=== PATIENT | male | born 1960 | race Caucasian/White ===

== ENCOUNTER 2017-09-23 21:35 | Emergency (ER) | payer OTHER ==
--- OUTSIDE RECORDS SUMMARY | 2017-09-23 21:41 | XMS REPORT | Continuity of Care Document ---
:1960 Author Organization [facility] Support Name Relationship Address Phone JAKOB HAYS spouse [address] [place] [address] Allergies and Intolerances No Allergy Data in the System Medications No Known Medications Problems No Data in the system Procedures No data in the system Results Laboratory Results Order: C REACTIVE PROTEIN Specimen Source : Body Site: Legend: (G,H)=High, (GG,HH,CH,#H)=Above High Threshold, (#,L)=Low, (##,CL,#L,LL)=Below Low Threshold, (C,CC,CA,#A,A)=Abnormal LOINC Test Result Flag Range Units Date 1987-07 1CRP SerPl-mCnc 12.3 H <=5.0 mg/L 09/08/2017 11:07 Performing Lab Footnotes:[facility] - [id number] - [address] [place] [address] REINALDO WOLFE Order: CBC DIFF Specimen Source: Body Site: Legend: (G,H)=High, (GG,HH, CH,#H)=Above High Threshold, (#,L)=Low, (##,CL,#L,LL)=Below Low Threshold, (C,CC ,CA,#A,A)=Abnormal LOINC Test Result Flag Range Units Date 6690- 1WBC # Bld Auto 12.0 H 4.8-10.8 K/uL 09/08/2017 11:07 77328-1 1RBC # Bld 4.61 4.60-6.20 M/uL 09/08/2017 11:07 718-7 1Hgb Bld-mCnc 16.0 13.5-18.0 gm/dL 09/08/2017 11:07 4544-3 1Hct VFr Bld Auto 46.7 41.0-53.0 % 09/08/2017 11:07 787-2 1MCV RBC Auto 101.0 H 80.0-100.0 fL 09/08/2017 11:07 21567-5 1MCHC RBC-mCnc 34.2 30.0-36.5 % 09/08/2017 11:07 18800-8 1MCH RBC Qn 34.7 H 27.0-34.0 pg 09/08/2017 11:07 14890-9 1RDW RBC 11.9 11.0-15.0 % 09/08/2017 11:07 777-3 1Platelet # Bld Auto 257 130-450 K/uL 09/08/2017 11:07 53884-8 1PMV Bld Auto 7.9 6.0-12.0 fL 09/08/2017 11:07 751-8 1Neutrophils # Bld Auto 75 37-80 % 09/08/2017 11:07 58352-7 1Lymphocytes NFr Bld 17 10-50 % 09/08/2017 11:07 5905-5 1Monocytes NFr Bld Auto 7 0-12 % 09/08/2017 11:07 21254-0 1Eosinophil # Bld 1 <=8 % 09/08/2017 11:07 704-7 1Basophils # Bld Auto 0 <=3 % 09/08/2017 11:07 37325-8 1Neutrophils # Bld 9.0 H 1.8-8.6 K/uL 09/08/2017 11:07 731-0 1Lymphocytes # Bld Auto 2.0 0.5-5.0 K/uL 09/08/2017 11:07 742-7 1Monocytes # Bld Auto 0.9 0.0-1.3 K/uL 09/08/2017 11:07 40763-8 1Eosinophil # Bld 0.1 0.0-0.9 K/uL 09/08/2017 11:07 704-7 1Basophils # Bld Auto 0.0 0.0-0.3 K/ul 09/08/2017 11:07 Performing Lab Footnotes:[facility] - [id number] - [address] [place] [address] REINALDO [id number] Order: RHEUMATOID FACTOR Specimen Source: Body Site: Legend: (G,H)=High , (GG,HH,CH,#H)=Above High Threshold, (#,L)=Low, (##,CL,#L,LL)=Below Low Threshold, (C,CC,CA,#A,A)=Abnormal LOINC Test Result Flag Range Units Date 65014-3 1RF IgG Ser-aCnc NEGATIVE NEGATIVE 09/08/2017 11:07 1Methodology: Latex Agglutination Performing Lab Footnotes:[facility] - [id number] - [address] [place] [address] REINALDO [id number] Order: SEDRATE ESR Specimen Source: Body Site: Legend: (G,H)=High, (GG, HH,CH,#H)=Above High Threshold, (#,L)=Low, (##,CL,#L,LL)=Below Low Threshold, (C ,CC,CA,#A,A)=Abnormal LOINC Test Result Flag Range Units Date 14079-9 1ESR Bld Qn 3.0 0.0-20.0 mm/hr 09/08/2017 11:07 Performing Lab Footnotes:[facility] - [id number] - [address] [place] [address] REINALDO WOLFE Order: URIC ACID Specimen Source: Body Site: Legend: (G,H)=High, (GG,HH ,CH,#H)=Above High Threshold, (#,L)=Low, (##,CL,#L,LL)=Below Low Threshold, (C, CC,CA,#A,A)=Abnormal LOINC Test Result Flag Range Units Date 3084- 1Urate SerPl-mCnc 6.7 2.6-7.2 mg/dL 09/08/2017 11:07 Performing Lab Footnotes:[facility] - [id number] - [address] [place] [address] REINALDO WOLFE Reference Laboratory Results Order: DEVIN - Antinuclear Antibodies, IFA [SO] Specimen Source: Body Site: LOINC Code Test Result Flag Range Units Date 70010-08 1Nuclear Ab Negative 09/08/2017 11:07:00 AM Note: Negative <1:80 Borderline 1:80 Positive >1:80 Performing Lab Footnotes:[facility] - [address] [id number] BRAYDON SANTOS Social History Code Code System Social History Description Dates Observed Observation [id number] SNOMED CT Current Smoking Unknown if ever Status smoked UNK AdministrativeGender Sex Assigned At Unknown Vital Signs No data in the system Goals Section No data in the system Health Concerns No data in the systemEncounter Diagnosis Date Code Code System Diagnosis Status R03.0 ICD10 ELEVATED BP READING W/O DX HTN Active Advance Directives No Data in the System Family History No data in the system Functional Status No data in the system Immunizations No data in the system Medical Equipment No data in the system Mental Status No data in the system Assessment and Plan Assessments No data in the systemPlan Of Treatment No data in the systemPending Tests No data in the system Hospital Discharge Instructions No data in the system Reason for Visit No data in the system
--- OUTSIDE RECORDS SUMMARY | 2017-09-23 21:41 | XMS REPORT ---
:1960 External Reference #:[id number] Author Organization [facility], Address [address] [place] [address] Phone [phone] Care Team Providers Name Role Phone Talisha Healy M.D. Primary Care Physician Unavailable Payers Type Date Identification Numbers Payment Provider Subscriber Commercial Policy Number: [id number] Lifetime Benefit Solution Bernice Yeung PayID: [id number] [address] [address] [place] [address] Commercial Expires: 2015 Policy Number: [id number] [email or web address] Bernice Yeung Group Number: [id number] [address] PayID: [place] [address] Problems Description No Information Family History Date Family Member(s) Problem(s) Comments General Non Contributory Social History Type Date Description Comments Marital Status Occupation [employer] Work Status Currently Working Hand Dominance Right-handed ETOH Use Drinks 2 Alcoholic Beverages Per Day Smoking Patient is a current smoker, smokes some days Recreational Drug Use Denies Drug Use Allergies, Adverse Reactions, Alerts Date Description Reaction Status Severity Comments 09/09/2017 NKDA active Medications Medication Date Status Form Strength Qnty SIG Indications Ordering Provider Diclofenac Active Tablets DR 75mg 1 by Unknown Sodium 000 mouth twice a day with food Clindamycin HCL Active Capsules 300mg 1 tab Unknown 000 four times a day x 10 days Cephalexin Active Capsules 500mg 1 by Unknown 000 mouth four times a day Medications Administered in Office Medication Date Status Form Strength Qnty SIG Indications Ordering Provider Injection Administered Injection Omari Ketorolac 0[address] Tromethamine Per 15 MG (Toradol) Therapeutic/Pro Administered Injection Omari phylactic/Diagn 0[address] ostic Inj(Subcu/Im) (Specify Drug) Vital Signs Date Vital Result Comment 09/09/2017 Weight 168.00 lb Weight in kg's 76.205 BMI (Body Mass Index) 24.1 kg/m2 BP Systolic 126 mmHg BP Diastolic 82 mmHg Heart Rate 93 /min Body Temperature 97.4 F Respiratory Rate 12 /min Pain Level 0 while using hand 10 Height 70 inches 5'10" Height in cm's 177.8 cm O2 % BldC Oximetry 98 % Results Description No Information Procedures Date CPT Code Description Status 02/23/2016 93912 Therapeutic/Prophylactic/Diagnostic Inj(Subcu/Im) Completed (Specify Drug) Encounters Type Date Location Provider CPT E/M Dx Office Visit 09/09/2017 [facility] Meggan Phelps, [address] S63.501D 9:[facility]a Specialists M.DJames Plan of Care No Information Available
--- NOTE | 2017-09-23 21:51 | UC ---
Skin Complaint HPI - HPI Summary HPI Summary: 56 yo male with the onset of pruritic rash 3 days ago getting progressively worse onset occurred while on day 100 of keflex and clindamycin for infection right wrist past couple of days had some nausea and diarrhea no f/c has been working outside a lot - History of Current Complaint Time Seen by Provider: 09/23/17 21:48 Stated Complaint: RASHES Hx Obtained From: Patient Onset/Duration: Gradual Onset, Lasting Days Timing: Constant Onset Severity: Mild Current Severity: Severe Pain Intensity: 0 Pain Scale Used: 0-10 Numeric Location: Other - worse on lower extremities Character: Pruritus, Redness, Raised Aggravating Factor(s): Nothing Alleviating Factor(s): Nothing Associated Signs & Symptoms: Positive: Rash - Allergy/Home Medications Allergies/Adverse Reactions: Allergies Allergy/AdvReac Type Severity Reaction Status Date / Time No Known Allergies Allergy Verified 09/23/17 21:54 Home Medications: Home Medications Cephalexin CAP* [Keflex 500 CAP*] 500 mg PO DAILY 09/23/17 [History Confirmed ] Clindamycin Cap(NF) [Clindamycin Cap 300 mg Cap(NF)] 300 mg PO QID 09/23/17 [ History Confirmed 09/23/17] Diclofenac Sodium [Voltaren] 100 gm TOPICAL BID 09/23/17 [History Confirmed ] Review of Systems Constitutional: Negative Skin: Rash Eyes: Negative ENT: Negative Respiratory: Negative Cardiovascular: Negative Gastrointestinal: Negative Genitourinary: Negative Motor: Negative Neurovascular: Negative Musculoskeletal: Negative Neurological: Negative Psychological: Negative Is Patient Immunocompromised?: No All Other Systems Reviewed And Are Negative: Yes PMH/Surg Hx/FS Hx/Imm Hx Previously Healthy: Yes - Family History Known Family History: Positive: None Physical Exam Triage Information Reviewed: Yes Appearance: Well-Appearing, No Pain Distress, Well-Nourished Vital Signs Reviewed: Yes ENT: Positive: Hearing grossly normal, Other - no oral lesions. Negative: TMs normal, Trismus, Muffled voice, Hoarse voice Neck: Positive: Supple, Nontender, No Lymphadenopathy Respiratory: Positive: Lungs clear, Normal breath sounds Cardiovascular: Positive: RRR, No Murmur Musculoskeletal: Positive: ROM Intact, No Edema Neurological: Positive: Alert Psychological Exam: Normal Skin: Positive: rashes - many urticarial type lesions on legs and abd with target lesion inner thighs and knees Course/Dx - Differential Diagnoses - Skin Complaint Differential Diagnoses: Drug Rash, Erythema Multiforme, Urticaria - Diagnoses Provider Diagnoses: erthyema multiforme Discharge - Sign-Out/Discharge Documenting (check all that apply): Patient Departure - Discharge Plan Condition: Stable Disposition: HOME Prescriptions: hydrOXYzine HCL TAB* [Atarax TAB*] 25 mg PO QID PRN #20 tab PRN Reason: Itching Patient Education Materials: Werner-Camacho Syndrome (DC) Referrals: Talisha Yeager MD [Primary Care Provider] - Tea Marin [Medical Doctor] - As Soon As Possible Additional Instructions: I think your reaction is due to a hypersensitivity reaction to one of the two antibiotic medications you were on(or the anti inflammatory medicine) You do not have Werner Camacho Syndrome but this is the closest handout I could find This sometimes can get so severe it requires hospitalization I suggest you follow up with a manager bank If you can not see your manager bank in a timely fashion please call the one list here I think your rash is ERYTHEMA MULTIFORME. This often occurs from infections but as discussed I think yours is due to a reaction to one of the meds you were on. - Billing Disposition and Condition Condition: STABLE Disposition: Home
[2017-09-23 21:53] VITALS: BP 124/80
[2017-09-23] MEDS ORDERED: hydrOXYzine HCL TAB* 25 MG PO ONE (22:32)
[2017-09-23] MEDS ORDERED: Triamcinolone Acetonide* 40 MG/ML 1 ML VIAL IM ONE (22:32)
== END 2017-09-23 22:59 | disposition home or self-care (01) ==
LOC: UCEAST 21:35
DX: L51.9 Erythema multiforme, unspecified (principal); R11.0 Nausea; R19.7 Diarrhea, unspecified
CPT/HCPCS: 81003; 96372; 99212; A9270-GY; G0463; J3301